=== PATIENT | male | born 1965 | race Caucasian/White ===

== ENCOUNTER 2021-04-22 13:04 | Emergency (ER) | payer OTHER ==
[~2021-04-22] VITALS: Ht 182.9 cm; Wt 83.9 kg
[2021-04-22 13:31] LABS: ABSOLUTE NEUTROPHILS 10.5 thou/uL (1.4-8.2); BASOPHILS 0.3 % (0.0-2.0); EOSINOPHILS 4.4 % (0.0-3.0); HEMATOCRIT 44.6 % (42.0-52.0); HEMOGLOBIN 15.5 gm/dL (14.0-18.0); LYMPHOCYTES 12.1 % (24.0-44.0); MCH 31.9 pg (26.0-34.0); MCHC 34.7 g/dL (28.0-37.0); MCV 91.9 fL (80.0-100.0); MONOCYTES 6.5 % (1.0-8.0); PLATELET COUNT 265 thou/uL (150-400); POLYS 76.7 % (36.0-66.0); RBC 4.85 mil/uL (4.50-6.00); RDW 13.5 % (10.5-14.5); WBC 13.7 thou/uL (4.0-11.0)
[2021-04-22 13:42] LABS: CALCIUM 9.1 mg/dL (8.5-10.1); POTASSIUM 3.3 mmol/L (3.5-5.1)
[2021-04-22 13:52] LABS: ALBUMIN 4.1 g/dL (3.4-5.0); TOTAL BILIRUBIN 0.8 mg/dL (0.2-1.0); TOTAL PROTEIN 7.7 g/dL (6.4-8.2)
[2021-04-22 15:25] VITALS: BP 134/82
[2021-04-22] MEDS ORDERED: PREDNISONE 20 M20 MG PO (15:40)
--- NOTE | 2021-04-24 07:36 | EKG ---
[address] [place] [address] ELECTROCARDIOGRAM REPORT Name: GEORGE MILLER Room #: DEP Chelsie#: [id number] Admission: 04/22/21 Attend Phys: Discharge: 04/22/21 Date of : 61 Report #: [id number] [facility] ED Test Date: 2021-04-22 Test Time: 13:05:14 Pat Name: GEORGE MILLER Department: Room: Gender: M [employer]: [email or web address] : 1965 Requested By: Farhan Phelan Order Number: [id number] MD: Guy Saldaña Measurements Intervals [place] Rate: 98 P: 0 KS: 181 QRS: 16 QRSD: 109 T: 67 QT: 359 QTc: 459 Interpretive Statements Sinus rhythm RSR' in V1 or V2, probably normal variant Minimal ST elevation, inferior leads Artifact in lead(s) II,aVR,aVF,V4,V5 No previous ECG available for comparison Electronically Signed On 04-24-2021 7:36:23 [employer] by Guy Saldaña [email or web address] <ELECTRONICALLY SIGNED> By: Guy Saldaña MD, [facility] 04/24/21 0736 1305 1305 Guy Saldaña MD, FACC /EPI
== END 2021-04-22 15:53 | disposition home or self-care (01) ==
LOC: ER 13:04
PROVIDERS: Emergency Medicine
DX: R06.2 Wheezing (principal); Z20.822 Contact with and (suspected) exposure to COVID-19; R05.9 Cough, unspecified; R06.02 Shortness of breath; R07.89 Other chest pain; F17.210 Nicotine dependence, cigarettes, uncomplicated